=== PATIENT | male | born 1930 | race Caucasian/White ===

== ENCOUNTER 2017-04-28 19:23 | Inpatient (IN) | payer OTHER ==
[~2017-04-28] VITALS: Ht 177.8 cm; Wt 86.6 kg
[2017-04-28 19:43] VITALS: BP 119/57
[2017-04-28 20:09] LABS: INFLUENZA A ANTIGEN None Detected (None Detect); INFLUENZA B ANTIGEN None Detected (None Detect)
[2017-04-28 20:22] LABS: HEMATOCRIT 44.4 % (42.0-52.0); HEMOGLOBIN 14.9 gm/dL (14.0-18.0); MCH 30.5 pg (26.0-34.0); MCHC 33.4 g/dL (28.0-37.0); MCV 91.2 fL (80.0-100.0); MPV 10.2 fl. (7.2-11.1); NUCLEATED RBCS 0 /100WBC; PLATELET COUNT* 165 thou/uL (150-400); RBC 4.87 mil/uL (4.50-6.00); RDW-CV 14.4 % (10.5-14.5); WBC 9.7 thou/uL (4.0-11.0)
[2017-04-28 20:34] LABS: INR 1.2; PROTIME 11.4 Seconds (9.20-11.50)
[2017-04-28 20:39] LABS: ANION GAP 12 mmol/L (7-16); BUN 44 mg/dL (7-18); CALCIUM 8.7 mg/dL (8.5-10.1); CHLORIDE 102 mmol/L (98-107); CO2 22 mmol/L (21-32); CREATININE 1.5 mg/dL (0.6-1.3); GLUCOSE 113 mg/dL (70-99); SODIUM 136 mmol/L (136-145)
[2017-04-28 20:44] LABS: ALBUMIN 3.5 g/dL (3.4-5.0); ALKALINE PHOSPHATASE 68 U/L (46-116); NT-PRO BRAIN NAT PEPTIDE 384 pg/mL (<300); SGOT 62 U/L (15-37); SGPT 30 U/L (30-65); TOTAL BILIRUBIN 1.1 mg/dL (<0.1-1.0); TOTAL PROTEIN 6.9 g/dL (6.4-8.2); TROPONIN-I LEVEL <0.06 ng/mL (<0.06)
[2017-04-28 20:51] LABS: ABSOLUTE LYMPHOCYTES 0.5 thou/uL (0.8-5.3); ABSOLUTE MONOCYTES 0.9 thou/uL (0.0-1.2); ABSOLUTE NEUTROPHILS 8.3 thou/uL (1.6-8.1); ATYPICAL LYMPHS 1 %; PLATELET ESTIMATE ADEQUATE
--- NOTE | 2017-04-28 21:16 | NUR ---
BACK FROM CAT SCAN.
--- NOTE | 2017-04-28 22:48 | NUR ---
PT MOVED TO HOSPITAL BED. PO FLUIDS OFFERED. NO C/O'S AT PRESENT.
[2017-04-29 04:39] LABS: ALBUMIN 3.1 g/dL (3.4-5.0); CREATININE 1.5 mg/dL (0.6-1.3); POTASSIUM 3.8 mmol/L (3.5-5.1); TOTAL BILIRUBIN 0.8 mg/dL (<0.1-1.0); TOTAL PROTEIN 5.6 g/dL (6.4-8.2)
[2017-04-29 05:32] LABS: URINE BILIRUBIN NEGATIVE (Negative); URINE BLOOD 1+ (Negative); URINE CLARITY CLEAR; URINE COLOR YELLOW; URINE GLUCOSE-RANDOM NEGATIVE (Negative); URINE KETONES NEGATIVE (Negative); URINE LEUKOCYTES-REFLEX NEGATIVE (Negative); URINE NITRITE-REFLEX NEGATIVE (Negative); URINE PROTEIN TRACE (Negative); URINE SPECIFIC GRAVITY >= 1.030 (1.005-1.030); URINE UROBILINOGEN 0.2 E.U./dl (0.2-1.0)
[2017-04-29 06:06] LABS: BACTERIA-REFLEX 1-9 Few /HPF (None Seen); CASTS None Seen /LPF (None Seen); CRYSTALS None Seen /LPF (None Seen); MUCUS 0-3 Light strn/LPF (None Seen); SQUAMOUS 0-3 Few /LPF (0-3); URINE RBC 3-10 Few /HPF (0-2); URINE WBC-REFLEX 0-5 Rare /HPF (0-5)
[2017-04-29 06:22] VITALS: BP 145/66
[2017-04-29 09:23] VITALS: BP 147/100
--- NOTE | 2017-04-29 09:30 | NUR ---
PT PROVIDED BREAKFAST TRAY
[2017-04-29 12:07] VITALS: BP 125/48
--- NOTE | 2017-04-29 13:18 | NUR ---
PT PROVIDED WITH LUNCH TRAY
[2017-04-29 15:31] VITALS: BP 125/48
[2017-04-29 15:50] VITALS: BP 127/51
[2017-04-29] MEDS ORDERED: ZOCOR20 MG PO (16:58)
[2017-04-29] MEDS ORDERED: LISINOPRIL10 MG PO (16:59)
[2017-04-29 19:41] VITALS: BP 141/60
[2017-04-30 04:04] LABS: HEMATOCRIT 35.9 % (42.0-52.0); MCH 31.2 pg (26.0-34.0); MCHC 34.4 g/dL (28.0-37.0); MCV 90.5 fL (80.0-100.0); RBC 3.97 mil/uL (4.50-6.00); RDW-CV 14.4 % (10.5-14.5); WBC 5.7 thou/uL (4.0-11.0)
[2017-04-30 04:21] LABS: HEMOGLOBIN 12.4 gm/dL (14.0-18.0)
[2017-04-30 04:38] LABS: ALBUMIN 2.7 g/dL (3.4-5.0); CREATININE 1.1 mg/dL (0.6-1.3); MAGNESIUM 1.9 mg/dL (1.8-2.4); POTASSIUM 4.7 mmol/L (3.5-5.1); TOTAL BILIRUBIN 0.3 mg/dL (<0.1-1.0); TOTAL PROTEIN 5.2 g/dL (6.4-8.2)
--- NOTE | 2017-04-30 06:55 | NUR ---
PT SLEPT MOST OF THE NIGHT. PT UP A COUPLE TIMES. PT DENIES PAIN AND N/V. PT IS ON ROOM AIR WITH ADEQUATE SATS. PT IS CONFUSED AND FORGETFUL, HX OF DEMENTIA. PT IS UP ONE ASSIST WITH GAIT BELT. PT IS INCONT. PT HAS IV IN LEFT HAND, SALINE LOCKED. PT IS FALL RISK, BED ALARM ON. SEE ASSESSMENT AND VITALS FOR OTHER DETAILS. CALL LIGHT WITHIN REACH, WILL CONTINUE TO MONITOR
[2017-04-30 09:03] VITALS: BP 152/48
--- NOTE | 2017-04-30 12:29 | NUR ---
SW met with pt to complete initial assessment, introduce self, and SW role. Pt alert, oriented to self and place, and was pleasant. Pt anticipates to be able to dc home with family. Team discussed possible need for LTC or RESIDENTIAL placement due to pt care needs and dementia. SW to continue to follow to assist with safe dc planning.
[2017-04-30 16:18] VITALS: BP 186/74
--- NOTE | 2017-04-30 18:06 | NUR ---
PATIENT TRYING TO CLIMB OUT OF BED MULTIPLE TIMES TODAY, FALL PRECAUTIONS IN PLACE. CONFUSED BUT DENIES PAIN, NAUSEA OR SHORTNESS OF AIR. PROGRESSING TOWARDS GOALS. PATIENT WILL NEED PLACEMENT ONCE DISCHARGED. BED IN LOWEST POSITION, CALL LIGHT IN REACH.
[2017-05-01 00:15] VITALS: BP 130/60
[2017-05-01 08:00] VITALS: BP 126/67
--- NOTE | 2017-05-01 15:11 | NUR ---
ERNESTO attempted to call pt son in law (who SW found out later is actually a step-son to the pt) but the phone number was not correct and was no longer in service or disconnected. SW faxed referrals to LTC facility with possibility for pt to dc to SNF for a couple of weeks and then transition to LTC. ERNESTO faxed referrals to [facility], [facility], and [facility]. SW found pt step son and granddaughter in the hospital and received corrected phone number for step son José Miguel Quinn [phone]. José Miguel and pt dtr Maxine Vergara (cell number [phone]) share DPOA. José Miguel explained that most other family and pt have estranged relationships and that he as well as anyone else would be unable to take care of pt at home. [phone] called and is considering accepting pt and checking on his insurance. Vidhya from [facility] ph [phone] called and left message for ERNESTO to call back to provide more info. SW to continue to follow to assist with dc planning and SNF/LTC facility.
[2017-05-01 16:00] VITALS: BP 147/69
--- NOTE | 2017-05-01 20:05 | NUR ---
DAY 4 OF STAY. VERY IMPULSIVE, OFTEN CONFUSED WITH BED AND CHAIR ALARM, UNABLE TO RETAIN REASON FOR ALARMS, DENIES BEING A RISK FOR FALLS, DIFFICULT TO REDIRECT, OFTEN USING PROFANITY TOWARD STAFF. WALKS WITH EXT ASSIST OF ONE, UNSTEADY GAIT, ALWAYS REACHING FOR FURNITURE/JOE TO SUPPORT SELF. DENIES ANY DISCOMFORT, JERSON DIET AND MEDS WITHOUT DIFFICULTY. PER REPORT, PATIENT IS UNABLE TO RETURN TO LIVING WITH [facility] DUE TO AMOUNT OF CARE REQUIRED, AWAITING SKILLED STAY ACCEPTANCE.
--- NOTE | 2017-05-02 06:53 | NUR ---
ASSESSMENT COMPLETE. PT SLEPT GOOD THROUGHOUT THE NIGHT. PT INCONT OF URINE, 2 BED CHANGES. PT HAS BRIEF IN PLACE PER PT REQUEST. PT TURNS SELF IN BED. PT IS ON ROOM AIR WITH ADEQAUTE SATS. PT IS FALL RISK, BED ALARM ON. PT IS UNSTEADY, ONE ASSIST TO BATHROOM WITH WALKER. PT HAS IV IN LEFT HAND, SALINE LOCKED. SKIN INTACT. SEE ASSESSMENT AND VITALS FOR OTHER DETAILS. CALL LIGHT WITHIN REACH, WILL CONTINUE TO MONITOR
[2017-05-02 07:30] VITALS: BP 141/54
--- NOTE | 2017-05-02 09:00 | NUR ---
VSS, ASSUMED CARE IN THE AM ASSESSMENT PERFORMED AND CHARTED, FALL PRECAUTIONS IN PLACE AND CALL LIGHT IN REACH AND CALL LIGHT IN REACH, PT IS CONFUSED AND UP WITH ONE TO BATHRROM, PT DENIES ANY PAIN AND HIS GOAL IS SAFETY, CM IS LOOKING FOR PLACEMENT TO SNF,
--- NOTE | 2017-05-02 11:38 | NUR ---
SW received call from Karin at [facility] who explained that they are actaully out of network with pt insurance and there are no out of network benefits so they would be unable to accept pt at this time. Deneen at [facility] called SW and explained that pt can be accepted clinically to SNF but insurance is uncertain that SNF can be justified; orders for OT will be needed as OT had signed off and even for insurance to consider SNF, pt will need to have a need for more than just PT. Possibility will be needed for pt to be able to return home or maybe ILF or SENIOR CARE. According to pt family, pt does not have the finances to pay for LTC, or ILF/SENIOR CARE. SW to continue to follow to provide SNFs with updated therapy notes to pursue SNF still being an option for pt dc.
[2017-05-02 16:04] VITALS: BP 126/52
--- NOTE | 2017-05-02 16:48 | NUR ---
VSS, PT IS PROGRESSING TOWARDS GOAL, PT IS CONFUSED, IMPULSIVE, AND IS A BIG FALL RISK, PT HAS BEEN UP TO BATHROOM AND TO CHAIR, PT GOAL IS SAFETY, FALL PRECAUTIONS IN PLACE AND CALL LIGHT IN REACH, ON RA AND DENIES ANY PAIN, WILL FOLLOW WITH SAFETY,
[2017-05-02 19:41] VITALS: BP 127/58
--- NOTE | 2017-05-03 05:57 | NUR ---
ASSESSMENT COMPLETE. PT SLEPT THROUGHOUT THE NIGHT WITHOUT ANY CONERNS. PT UP A COUPLE TIMES TO GO TO BATHROOM. PT CAN BE INCONT AT TIMES. PT IS ON ROOM AIR WITH ADEQAUTE SATS. PT DENIES PAIN AND N/V. PT TURNS SELF IN BED. PT IS UP ONE ASSIST WITH WALKER TO THE BATHROOM. PT IS IMPULSIVE. PT IS FALL RISK, BED ALARM ON. SEE ASSESSMENT AND VITALS FOR OTHER DETAILS. CALL LIGHT WITHIN REACH, WILL CONTINUE TO MONITOR
[2017-05-03 08:00] VITALS: BP 137/62
[2017-05-03] MEDS ORDERED: AZITHROMYCIN 2250 MG PO (14:02)
--- NOTE | 2017-05-03 14:10 | NUR ---
Pt to dc today to [facility]. ERNESTO faxed final orders and med list to [facility] ph [phone]. ERNESTO called pt step clau Valdez and left a detailed message informing of pt dc details. ERNESTO scheduled transportation with consent, through [facility] transportation to [facility] [place] pt at 4 pm.
[2017-05-03 14:12] VITALS: BP 137/62
[2017-05-03 17:17] VITALS: BP 137/62
--- NOTE | 2017-05-03 17:18 | NUR ---
PATIENT IS ALERT AND ORIENTED TODAY VERY PLEASANT. UP WALKING A LOT WITH STAFF AND WALKER AND GAIT BELT. VITAL SIGNS STABLE ON ROOM AIR. APPETITE IS GOOD. PATIENT BEING DISCHARGED TO [facility]. LEFT VIA WHEEL CHAIR WITH TRANSPORTER TO WHEEL CHAIR VAN. DISCHARGE INSTRUCTIONS GIVEN TO TRANSPORTER.
== END 2017-05-03 17:18 | DRG 872 ==
LOC: M.ERS 19:23 → M.TBA-ER 22:03 → M.3W 22:03
PROVIDERS: Emergency Medicine; Internal Medicine; ADMIT Internal Medicine
DX: A41.89 Other specified sepsis (principal); E44.1 Mild protein-calorie malnutrition; N17.9 Acute kidney failure, unspecified; J20.8 Acute bronchitis due to other specified organisms; F03.90 Unspecified dementia, unspecified severity, without behavioral disturbance, psychotic disturbance, mood disturbance, and anxiety; E86.9 Volume depletion, unspecified; A08.4 Viral intestinal infection, unspecified; R53.81 Other malaise; N18.2 Chronic kidney disease, stage 2 (mild); Z68.27 Body mass index [BMI] 27.0-27.9, adult; Z28.21 Immunization not carried out because of patient refusal

== ENCOUNTER 2017-11-29 21:46 | Inpatient (IN) | payer OTHER ==
[~2017-11-29] VITALS: Ht 167.6 cm; Wt 88.9 kg
[~2017-11-29 21:46] MED LIST: AZITHROMYCIN 2250 MG PO; LISINOPRIL10 MG PO; ZOCOR20 MG PO
[2017-11-29 21:48] VITALS: BP 105/38
[2017-11-29 22:07] LABS: HEMATOCRIT 43.4 % (42.0-52.0); HEMOGLOBIN 14.3 gm/dL (14.0-18.0); MCH 29.2 pg (26.0-34.0); MCHC 32.9 g/dL (28.0-37.0); MCV 88.8 fL (80.0-100.0); NUCLEATED RBCS 0 /100WBC; PLATELET COUNT* 335 thou/uL (150-400); RBC 4.88 mil/uL (4.50-6.00); RDW-CV 14.5 % (10.5-14.5); WBC 20.3 thou/uL (4.0-11.0)
[2017-11-29 22:17] LABS: ANION GAP 16 mmol/L (7-16); BUN 62 mg/dL (7-18); CALCIUM 8.8 mg/dL (8.5-10.1); CHLORIDE 100 mmol/L (98-107); CO2 18 mmol/L (21-32); CREATININE 1.5 mg/dL (0.6-1.3); GLUCOSE 132 mg/dL (70-99); POTASSIUM 3.6 mmol/L (3.5-5.1); SODIUM 134 mmol/L (136-145)
[2017-11-29 22:18] LABS: INR 1.1; PROTIME 10.9 Seconds (9.20-11.50)
[2017-11-29 22:33] LABS: ALBUMIN 2.6 g/dL (3.4-5.0); ALKALINE PHOSPHATASE 107 U/L (46-116); SGOT 97 U/L (15-37); SGPT 117 U/L (30-65); TOTAL PROTEIN 7.3 g/dL (6.4-8.2); TROPONIN-I LEVEL <0.06 ng/mL (<0.06)
[2017-11-29 22:40] LABS: ABSOLUTE LYMPHOCYTES 1.2 thou/uL (0.8-5.3); ABSOLUTE MONOCYTES 1.4 thou/uL (0.0-1.2); ABSOLUTE NEUTROPHILS 17.7 thou/uL (1.6-8.1); METAMYELOCYTES 2 %; MYELOCYTES 1 %
[2017-11-29 22:41] LABS: PLATELET ESTIMATE ADEQUATE
[2017-11-30] VITALS (8 sets, daily range): BP systolic 104–136; BP diastolic 46–78
[2017-11-30] MEDS ORDERED: TYLENOL325 MG PO (02:34)
[2017-11-30] MEDS ORDERED: NYSTATIN15 G2 TOP (02:36)
[2017-11-30] MEDS ORDERED: ROBITUSSIN100 MG/53 PO (02:38)
--- NOTE | 2017-11-30 13:32 | EKG ---
[place] [address] ELECTROCARDIOGRAM REPORT Name: BRENDA ZARATE Room: [address] ADM IN .R.#: [id number] Admission: 11/30/17 Attend Phys: Gamaliel Hutton MD Discharge: Date of : 32 Report #: [id number] THIS REPORT FOR: //name// [facility] ED Test Date: 2017-11-29 Test Time: 21:56:42 Pat Name: BRENDA ZARATE Department: Room: [facility] Gender: M Gold Charmer: ARNOLD : 1930 Requested By: Nicolas Murcia Order Number: [id number] MD: Kelechi Beasley Measurements Intervals Jerome Rate: 103 P: 46 FL: 165 QRS: -53 QRSD: 100 T: 55 QT: 411 QTc: 538 Interpretive Statements Sinus rhythm with pac's Paired ventricular premature complexes consider Inferior infarct, old Anteroseptal infarct, old Prolonged QT interval Compared to ECG 04/05/2006 20:29:38 Ventricular premature complex(es) now present Myocardial infarct finding now present Prolonged QT interval now present Sinus bradycardia no longer present Electronically Signed On 11-30-2017 13:31:55 CDT by Kelechi Beasley [email or web address] <ELECTRONICALLY SIGNED> By: Kelechi Beasley MD, [facility] 11/30/17 1331 [id number] Kelechi Beasley MD, [facility] /EPI
[2017-12-01] VITALS: BP 126/46
[2017-12-01 04:00] VITALS: BP 138/62
[2017-12-01 04:49] LABS: ABSOLUTE EOSINOPHILS 0.1 thou/uL (0.0-0.7); ABSOLUTE LYMPHOCYTES 1.4 thou/uL (0.8-5.3); ABSOLUTE MONOCYTES 0.9 thou/uL (0.0-1.2); ABSOLUTE NEUTROPHILS 13.9 thou/uL (1.6-8.1); BASOPHILS 0.3 %; EOSINOPHILS 0.7 %; HEMATOCRIT 38.6 % (42.0-52.0); HEMOGLOBIN 12.8 gm/dL (14.0-18.0); LYMPHOCYTES 8.6 %; MCH 29.4 pg (26.0-34.0); MCV 88.9 fL (80.0-100.0); MONOCYTES 5.6 %; MPV 9.8 fl. (7.2-11.1); NUCLEATED RBCS 0 /100WBC; PLATELET COUNT* 294 thou/uL (150-400); POLYS 84.8 %; RBC 4.34 mil/uL (4.50-6.00); RDW-CV 14.6 % (10.5-14.5); WBC 16.4 thou/uL (4.0-11.0)
[2017-12-01 05:05] LABS: CALCIUM 8.1 mg/dL (8.5-10.1); CREATININE 1.2 mg/dL (0.6-1.3); POTASSIUM 3.7 mmol/L (3.5-5.1)
[2017-12-01 08:00] VITALS: BP 127/49
[2017-12-01 13:20] LABS: URINE BILIRUBIN NEGATIVE (Negative); URINE BLOOD TRACE (Negative); URINE CLARITY CLEAR; URINE COLOR YELLOW; URINE GLUCOSE-RANDOM NEGATIVE (Negative); URINE KETONES NEGATIVE (Negative); URINE LEUKOCYTES-REFLEX NEGATIVE (Negative); URINE NITRITE-REFLEX NEGATIVE (Negative); URINE PROTEIN NEGATIVE (Negative); URINE UROBILINOGEN 0.2 E.U./dl (0.2-1.0)
--- NOTE | 2017-12-01 13:30 | CON ---
[address] [address] CONSULTATION Name: BRENDA ZARATE Room: [address] IN M.R.#: [id number] Admission: 11/30/17 Attend Phys: Gamaliel Hutton MD Discharge: Date of : 32 Report #: [id number] THIS REPORT FOR: //name// CC: [facility] DATE OF SERVICE: 11/30/2017 TYPE OF REPORT: Cardiology consultation. HISTORY OF PRESENT ILLNESS: The patient is an 87-year-old white male who I was asked to see in the hospital today because of an abnormal ECG. The history is obtained from the chart. There are no family members available. The patient is awake but is not oriented to place or time. He does not know why he is in the hospital. The patient was actually admitted to [place] in April. He has a history of dementia and was living with a stepson at this time. He was brought to the Emergency Room because of weakness and could not get out of bed. He was also confused. At that time, the patient cannot be cared for at home by his stepson. No past history was obtained. He was [facility]. The patient was brought to the Emergency Room last night after falling. He was noted to be bradycardic and complained of back pain. He also had a headache. He was brought to the emergency room by the ambulance. He was admitted and Cardiology consultation was requested. The patient denies any pain, shortness of breath or lightheadedness. PAST MEDICAL HISTORY: Otherwise significant for high blood pressure. MEDICATIONS: At the [facility], his medications included simvastatin and lisinopril. SOCIAL HISTORY: The patient was a smoker in the past. He no longer drinks alcohol. REVIEW OF SYSTEMS: Cannot be obtained. PHYSICAL EXAMINATION: GENERAL: Revealed an elderly, frail-appearing male, lying in bed. Of note is that he was lying in stool and urine. VITAL SIGNS: He had a blood pressure 110/60, pulse 80 and he was afebrile. HEENT: He is anicteric. Conjunctivae pink. Mucous members appear dry. NECK: Veins do not appear to be distended. CHEST: Revealed coarse breath sounds bilaterally. CARDIOVASCULAR: Regular rate and rhythm. ABDOMEN: Soft. EXTREMITIES: Had no edema. SKIN: [place] [address] CONSULTATION Name: BRENDA ZARATE Room: [address]#: [id number] Admission: 11/30/17 Attend Phys: Gamaliel Hutton MD Discharge: Date of : 32 Report #: [id number] NEUROLOGICAL: He moved all extremities. CARDIOLOGICAL DATA: His ECG on admission showed a sinus rhythm, occasional PAC and PVCs including ventricular couplets. LABORATORY DATA: His workup so far, lab work, sodium 134, creatinine 1.5 and glucose 132. Albumin is 2.6. Troponin 0.06. White blood cell count 20,000 and hemoglobin 14.3. RADIOLOGICAL DATA: His x-rays, he had a CT scan of the head without contrast that has not been done yet, although a CT scan of the head without contrast in April showed no acute abnormality. His chest x-ray last night, normal heart size, clear lung brito. There did appear to be basilar infiltrates. IMPRESSION AND RECOMMENDATIONS: 1. Dementia. 2. Premature atrial contractions. I would not treat at this time. 3. Premature ventricular contractions. I would not treat at this time. 4. Pneumonia. 5. History of fall. I would establish his code status. I would recommend no further cardiac evaluation. Cardiology will sign off at this time. <ELECTRONICALLY SIGNED> By: Kelechi Beasley MD, [facility] 12/01/17 1330 [id number] Beasley MD, FACC /nt
[2017-12-01 13:56] VITALS: BP 117/54
[2017-12-01 16:04] VITALS: BP 146/62
[2017-12-01 20:00] VITALS: BP 130/57
[2017-12-02] VITALS: BP 126/55
[2017-12-02 04:00] VITALS: BP 134/42
[2017-12-02 08:00] VITALS: BP 146/52
[2017-12-02 09:39] LABS: HEMATOCRIT 38.5 % (42.0-52.0); HEMOGLOBIN 12.8 gm/dL (14.0-18.0); MCH 29.7 pg (26.0-34.0); MCHC 33.2 g/dL (28.0-37.0); MCV 89.3 fL (80.0-100.0); NUCLEATED RBCS 0 /100WBC; PLATELET COUNT* 278 thou/uL (150-400); RBC 4.31 mil/uL (4.50-6.00); RDW-CV 14.6 % (10.5-14.5); WBC 13.5 thou/uL (4.0-11.0)
[2017-12-02 09:48] LABS: ALBUMIN 2.1 g/dL (3.4-5.0); CALCIUM 7.8 mg/dL (8.5-10.1); POTASSIUM 3.6 mmol/L (3.5-5.1); TOTAL BILIRUBIN 0.4 mg/dL (<0.1-1.0); TOTAL PROTEIN 6.2 g/dL (6.4-8.2)
[2017-12-02 10:34] LABS: ABSOLUTE BASOPHILS 0.3 thou/uL (0.0-0.2); ABSOLUTE EOSINOPHILS 0.4 thou/uL (0.0-0.7); ABSOLUTE LYMPHOCYTES 1.4 thou/uL (0.8-5.3); ABSOLUTE MONOCYTES 0.5 thou/uL (0.0-1.2); ABSOLUTE NEUTROPHILS 10.9 thou/uL (1.6-8.1); METAMYELOCYTES 2 %; PLATELET ESTIMATE ADEQUATE
[2017-12-02 11:46] VITALS: BP 144/51
[2017-12-02 15:35] VITALS: BP 136/56
[2017-12-02 20:35] VITALS: BP 129/66
[2017-12-03] VITALS: BP 162/71
[2017-12-03 04:00] VITALS: BP 127/67
[2017-12-03 05:10] LABS: ABSOLUTE BASOPHILS 0.1 thou/uL (0.0-0.2); ABSOLUTE EOSINOPHILS 0.3 thou/uL (0.0-0.7); ABSOLUTE LYMPHOCYTES 1.9 thou/uL (0.8-5.3); ABSOLUTE MONOCYTES 0.8 thou/uL (0.0-1.2); ABSOLUTE NEUTROPHILS 9.1 thou/uL (1.6-8.1); BASOPHILS 0.5 %; EOSINOPHILS 2.8 %; HEMOGLOBIN 12.7 gm/dL (14.0-18.0); LYMPHOCYTES 15.5 %; MCH 29.3 pg (26.0-34.0); MCHC 32.5 g/dL (28.0-37.0); MCV 90.1 fL (80.0-100.0); MPV 10.4 fl. (7.2-11.1); NUCLEATED RBCS 0 /100WBC; PLATELET COUNT* 278 thou/uL (150-400); POLYS 74.2 %; RBC 4.33 mil/uL (4.50-6.00); RDW-CV 14.3 % (10.5-14.5); WBC 12.2 thou/uL (4.0-11.0)
[2017-12-03 05:44] LABS: CALCIUM 8.2 mg/dL (8.5-10.1); CREATININE 0.9 mg/dL (0.6-1.3); POTASSIUM 3.8 mmol/L (3.5-5.1); TOTAL BILIRUBIN 0.4 mg/dL (<0.1-1.0); TOTAL PROTEIN 6.1 g/dL (6.4-8.2)
[2017-12-03 08:00] VITALS: BP 126/64
[2017-12-03 12:11] VITALS: BP 138/64
[2017-12-03] MEDS ORDERED: ALBUTEROL2.5 MG/31 INH (12:56)
[2017-12-03] MEDS ORDERED: ROBITUSSIN100 MG/53 PO (12:59)
[2017-12-03] MEDS ORDERED: AUGMENTIN 875-1 EACH PO (13:06)
[2017-12-03] MEDS ORDERED: PROBIOTIC1 EAC1 PO (13:08)
[2017-12-03 13:09] VITALS: BP 138/64
== END 2017-12-03 13:50 | DRG 177 ==
LOC: M.ERS 21:46 → M.2W 11-30 00:40 → M.TBA-ER 11-30 00:40 → M.2W 11-30 01:43
PROVIDERS: Emergency Medicine Emergency Medical Services; ADMIT Internal Medicine
DX: J69.0 Pneumonitis due to inhalation of food and vomit (principal); G93.40 Encephalopathy, unspecified; R65.10 Systemic inflammatory response syndrome (SIRS) of non-infectious origin without acute organ dysfunction; E87.2 Acidosis; F03.90 Unspecified dementia, unspecified severity, without behavioral disturbance, psychotic disturbance, mood disturbance, and anxiety; I49.3 Ventricular premature depolarization; E78.5 Hyperlipidemia, unspecified; I49.9 Cardiac arrhythmia, unspecified; Z87.891 Personal history of nicotine dependence; Z79.899 Other long term (current) drug therapy; Z91.81 History of falling